=== PATIENT | male | born 1975 | race Caucasian/White ===

== ENCOUNTER 2016-05-28 10:31 | Day surgery (SDC) | payer OTHER ==
[~2016-05-28] VITALS: Ht 180.3 cm; Wt 97.0 kg
[~2016-05-28 10:31] MED LIST: BUPIVACAINE 0.5% ONE; DEXAMETHASONE 4 MG/ML (DECADRON) VIAL ONE; LACTATED RINGERS 1,000 ML IV SCH; LIDOCAINE 2% (XYLOCAINE) 20 ML VIAL INJ ONE; POVIDONE IODINE 10% OINTMENT (BETADINE) 30 GM TUBE TOP ONE; SODIUM CHLORIDE FLUSH 3 ML SYR IV PRN; ceFAZolin 2,000 MG in SODIUM CHLORIDE VIAL (PF) 20 ML IV SCH
--- OUTSIDE RECORDS SUMMARY | 2016-05-28 10:36 | XMS REPORT ---
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 Technique: 3view hand Priors: None. Findings: There is a mildly comminuted, angulated transverse fracture of the distal metaphysis the 5th metacarpal. No additional acute fractures are identified. There is no dislocation. The distal radius and ulna appear intact. The carpal bones and joint spaces appear well maintained. Impression: Mildly comminuted, angulated fracture of the distal metaphysis of the 5th metacarpal. Electronically signed by: Kendrick Carey MD Dictated: 02/09/2015 09:00 Problems Encounter Diagnosis No relevant problems exist. Encounters Encounter Diagnosis No relevant problems exist. Plan of Care Procedures No relevant procedures performed. Immunizations No immunizations administered or ordered. Hospital Course Hospital Discharge Instructions Allergies, Adverse Reactions, Alerts Latex Allergy has not been assessed.IV Contrast Allergy has not been assessed. Medication Medication reconciliation has not been performed.
[2016-05-28] MEDS ORDERED: ceFAZolin 1000 MG (ANCEF) VIAL ONE (10:43)
[2016-05-28 10:46] VITALS: BP 116/77
[2016-05-28 11:24] LABS: MEAN CORPUSCULAR VOLUME 81 FL (80-100); MEAN PLATELET VOLUME 11.2 FL (6.0-9.5); PLATELET COUNT 111 10^3uL (150-450); WHITE BLOOD COUNT 6.62 10^3uL (4.0-11.0)
[2016-05-28 11:25] LABS: BILIRUBIN,URINE Negative (Negative); CLARITY,URINE Clear; COLOR,URINE Yellow; GLUCOSE, URINE (UA) Negative (Negative); LEUKOCYTE ESTERASE, URINE Negative (Negative); PH,URINE 6.5 (5.0 - 8.0); UROBILINOGEN,URINE 0.2 mg/dL (0.2-1.0)
[2016-05-28 11:25] LABS: MEAN CORPUSCULAR HGB CONC 35.8 g/dL (31.0-37.0)
[2016-05-28 11:31] LABS: BAND NEUTROPHILS % 0 % (0-6); EOSINOPHILS % 0 % (0-4); LYMPHOCYTES # 2.8 #; MONOCYTES # 0.4 #; MONOCYTES % 6 % (3-11); RBC MORPH NORMAL (NORMAL); SEGMENTED NEUTROPHILS % 51 % (51-67); TOTAL CELLS COUNTED 100
--- NOTE | 2016-05-28 11:37 | History and Physical (E) ---
History & Physical PCP: Ara Baez- Dr. 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 He has had chronic foot pain and it hurts to walk. Conservative measures have failed to give lasting relief. He has opted for surgical intervention today. Denies any fevers, SOB, chest pain, nausea or vomiting, no abdominal pain, last BM yesterday and was normal. No urinary issues. Denies Diabetes, cardiac or lung issues. His is here today and will help him post-operatively. He ate last night about 7pm. 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 Denies fever or chills. HEENT: No change in vision or hearing. No sores in mouth, sore throat. CV: No chest pain, palpitations. No cardiac history PULM: No cough, shortness of breath, difficulty breathing. No pulmonary issues GI: No upset stomach, nausea, vomiting, constipation, or diarrhea. No blood in stool. : No dysuria. No blood in urine. MS: Endorse right foot pain due to a nerve, chronic. NEURO: No numbness or tingling. No weakness. INTEG: No rashes, lesions, or sores. ENDO: No heat or cold intolerance. No polydipsia or polyuria. No diabetes HEME/LYMPH: No easy bruising or bleeding. No swollen glands. PSYCH: No change in mood or behavior. OBJECTIVE: Vitals: Vital Signs Date Time Temp Pulse Resp B/P Pulse Ox O2 Delivery O2 Flow Rate FiO2 05/28/16 10:46 98.0 77 20 116/77 97 Room air GEN: Awake, alert, oriented, NAD- at bedside HEENT: EOMI, PERRL, moist oral mucosa. Neck Supple, no bruit CV: RRR S1 S2 normal with no murmur LUNGS: CTA B ABD: Soft, NT/ND with normal bowel sounds. EXTR: No C/C/E. Normal peripheral pulses. No swelling to right foot, slight tender though INTEG: No rash. NEURO: No focal motor neuro deficit. Weight: 97 kg LABS: Laboratory Results Past 24 Hrs 05/28/16 11:10: Urine Bilirubin Negative, Urine Blood Negative, Urine Clarity Clear, Urine Collection Type Clean catch, Urine Color Yellow, Urine Glucose (UA) Negative, Urine Ketones Negative, Urine Leukocyte Esterase Negative, Urine Nitrite Negative, Urine Protein Negative, Urine Specific [place] 1.025, Urine Urobilinogen 0.2, Urine pH 6.5 05/28/16 11:20: Absolute Band Neutrophils 0.0, Band Neutrophils % 0, Basophils # (Manual) 0.1, Basophils % (Manual) 1, Blood Morphology Comment Normal, Differential Total Cells Counted 100, Eosinophils # 0.0, Eosinophils % (Manual) 0, Hematocrit 45.20 , Hemoglobin 16.2, Lymphocytes # 2.8, Lymphocytes % (Manual) 42, Mean Corpuscular Hemoglobin 29.0, Mean Corpuscular Hemoglobin Concent 35.8, Mean Corpuscular Volume 81, Mean Platelet Volume 11.2, Monocytes # 0.4, Monocytes % ( Manual) 6, Neutrophils # 3.4, Platelet Count 111, Red Blood Count 5.59, Red Cell Distribution Width 14.2, Segmented Neutrophils % 51, White Blood Count 6.62 ASSESSMENT/PLAN: Issac is a 40 year old male here for pre op medical clearance for 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 Arias He is mostly generally healthy without any major medical problems. He is a low risk for a low risk surgery. Will be happy to follow him post op as needed. They understand all risks and benefits and wish to proceed. Allergies/Home Medications Allergies: Coded Allergies: No Known Drug Allergies (Unverified , 05/27/16) Copies to: End of Report . Sheeba Blanton APRN May 28, 2016 11:37
[2016-05-28] MEDS ORDERED: MIDAZOLAM 2 MG/2 ML (VERSED) VIAL ONE (12:24)
[2016-05-28] MEDS ORDERED: ALFENTANIL 500 MCG/ML (ALFENTA) 5 ML AMP IV ONE (12:24)
[2016-05-28] MEDS ORDERED: PROPOFOL 40 ML IV ONE (14:01)
[2016-05-28] MEDS ORDERED: ONDANSETRON 2 MG/ML (Z0FRAN) 2 ML VIAL ONE (14:01)
[2016-05-28] MEDS ORDERED: diphenhydrAMINE 50 MG/ML INJ (BENADRYL) ONE (14:01)
[2016-05-28 14:15] VITALS: BP 92/53
[2016-05-28 14:43] VITALS: BP 129/75
[2016-05-28 15:13] VITALS: BP 108/75
[2016-05-28 15:40] VITALS: BP 112/73
--- NOTE | 2016-05-29 11:39 | OPERATIVE REPORT ---
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 HEMOSTASIS: A well padded pneumatic ankle tourniquet at 250 mmHg placed 1 cm above the medial malleolus. ESTIMATED BLOOD LOSS: Less than 5 mL MATERIALS: 1. 3-0 Vicryl. 2. 3-0 Ethilon. 3. Gelfoam INJECTABLES: A total of 1 mL Decadron phosphate injected into both incision sites postoperatively. COMPLICATIONS: None OPERATION: The patient was brought to the [facility] OR suite and placed on the table in the supine position. Anesthesia was obtained as above. The patient was then prepped and draped in the usual and customary aseptic fashion. Hemostasis was then obtained as above. Attention was then brought to the right 2nd web space where a dorsal linear incision was placed through the epidermis and the dermis with a sterile #15 blade. With the use of both sharp and blunt dissection, taking care to preserve neurovascular bundles, the incision was carried down to the intermetatarsal ligament. All bleeders were identified, clamped, cut and cauterized as needed at this time. The intermetatarsal ligament was released. A thick neuroma was then appreciated at this time and was excised in total. The wound was flushed to copious amounts of sterile saline. The wound was then packed with Gelfoam. The subcutaneous layer was closed with 3-0 Vicryl and the skin was closed with 3-0 Ethilon. Attention was then brought to the right 3rd web space where the exact same procedure was performed without incident. I injected 0.5 mL of Kenalog into each incision for a total of 1 mL. I then applied Betadine ointment, a sterile Adaptic, and a dry sterile dressing. The tourniquet was released and there was immediate capillary filling time to all digits of the right foot. The patient tolerated the anesthesia and the surgery quite well and left for the recovery room in good condition. The patient's first postoperative visit is in 1 week, sooner if any problems or concerns
== END 2016-05-28 15:50 | disposition home or self-care (01) ==
LOC: ASC 10:31
PROVIDERS: ATTEND Podiatrist
DX: G57.61 Lesion of plantar nerve, right lower limb (principal)
CPT/HCPCS: 28080; 36415; 81003; 85007; 85027; J0690; J1100; J1200; J2250; J2405